=== PATIENT | female | born 1955 | race Asian ===

== ENCOUNTER 2019-01-08 09:02 | Outpatient (REF) | payer BC, SELFPAY ==
--- NOTE | 2019-01-08 08:30 | PAPFT_PTH ---
PATIENT: Jeannie Mcgowan LOC: [facility] U#:[id number] AGE/SX: 63/F ROOM: RE01/08/[address]: CIARA Diamond : 1955 BED: DIS: 01/08/2019 SPEC #: [id number] RECD: 01/08/19 13:03 STATUS: SIGRID MARSH #: [id number] RERE: 01/08/19 08:[address]: Elaine Rodriguez DEPT: [facility] Cytology RECD BY: Beronica Roper Tissues: 1 - CX/ENDOCX FOR PAP SMEARS Procedures: PAP THIN PREP/[facility] Screening HPV DNA PROBE Comments: [id number]
== END 2019-01-08 09:22 ==
LOC: LBN 09:02
PROVIDERS: Visit Provider Nurse Practitioner Family
DX: Z12.4 Encounter for screening for malignant neoplasm of cervix (principal); Z11.51 Encounter for screening for human papillomavirus (HPV)
CPT/HCPCS: 88142; 87624

== ENCOUNTER 2020-12-23 02:32 | Outpatient (CLI) | payer MEDICARE, OTHER, SELFPAY ==
[2020-12-23 10:12] LABS: Anion Gap 7.9 mmol/L (3-11); BUN 12 mg/dL (7-18); CO2 29.1 mmol/L (21.0-32.0); CREATININE 0.6 mg/dL (0.55-1.02); Calcium 9.4 mg/dL (8.5-10.1); Calculated LDL 129 mg/dL (<100); Chloride 104 mmol/L (98-107); Cholesterol 211 mg/dL (<200); Glucose 110 mg/dL (74-106); HDL Cholesterol 71 mg/dL (40-60); Potassium 3.9 mmol/L (3.5-5.1); Sodium 141 mmol/L (136-145); Triglyceride 57 mg/dL (<150)
== END 2020-12-23 02:33 | disposition home or self-care (01) ==
LOC: LBO 02:32
PROVIDERS: PCP Internal Medicine; Visit Provider Internal Medicine
DX: Z13.1 Encounter for screening for diabetes mellitus (principal); Z13.6 Encounter for screening for cardiovascular disorders; Z00.00 Encounter for general adult medical examination without abnormal findings
CPT/HCPCS: 36415; 80048; 80061

== ENCOUNTER 2021-01-10 02:39 | Outpatient (CLI) | payer MEDICARE, SELFPAY ==
--- NOTE | 2021-01-10 07:00 | DI.MAMMO_ITS ---
Exam(s) MAMMO SCREENING EXAM: MAMMO SCREENING CLINICAL HISTORY: screening,Z12.39 TECHNIQUE: Mammograms were interpreted according to the usual protocol including computer analysis w [employer] CAD system, tomosynthesis and C-view imaging. COMPARISON: 2012 and 2015 FINDINGS: The breasts are composed of heterogeneously dense fibroglandular densities, Breast Density category C . No suspicious masses or suspicious microcalcifications are seen. Multiple scattered bilateral benign -appearing calcifications. No skin thickening or abnormal axillary lymph nodes are seen. There has been no significant change from prior exams. IMPRESSION: BI-RADS Cat 2 - Benign Findings Yearly screening mammography is recommended. Breast Density Category C, heterogeneously Dense. The mammogram demonstrates the patient's breast tissue is dense. Dense breast tissue is very common a nd is not abnormal but dense breast tissue can make it harder to find cancer on a mammogram. Also, de nse breast tissue may increase breast cancer risk. This information about the result of the mammogram report was provided to the patient to raise their awareness. Use this report when you speak with the patient about their risks for breast cancer, which includes their family history. At that time, you may recommend additional screening tests (Ultrasound or MRI) as they might be useful based on their r isk. A negative radiographic report should not delay biopsy if a dominant or clinically suspicious mass is present. Up to ten percent of cancers are not identified on mammography. A negative report may reinforce clinical impression. Adenosis and dense breasts may obscure an underlying neoplasm. False positive reports average 6 to 10%.
== END 2021-01-10 02:59 ==
PROVIDERS: PCP Internal Medicine; Visit Provider Internal Medicine
DX: Z12.31 Encounter for screening mammogram for malignant neoplasm of breast (principal); R92.8 Other abnormal and inconclusive findings on diagnostic imaging of breast
CPT/HCPCS: 77063; 77067

== ENCOUNTER 2021-04-13 02:09 | Outpatient (CLI) | payer MEDICARE, SELFPAY ==
--- NOTE | 2021-04-13 14:45 | DI.DEXA_ITS ---
Exam(s) XR DEXA BONE DENSITY W/WO TOYA EXAM: XR DEXA BONE DENSITY W/WO TOYA CLINICAL HISTORY: screening FOR OSTEOPOROSIS IN POSTMENOPAUSAL WOMAN,Z78.0 TECHNIQUE: COMPARISON: No exams were available for comparison FINDINGS: DEXA scan was performed according to the usual protocol. Please see the accompanying data sheets. F indings for left hip scanning are T-score -2.4 with left femoral neck T-score -3.1. Lumbar spine scanning shows T-score -2.4. Left forearm scanning shows T-score -3.4. IMPRESSION: Findings consistent with osteoporosis according to the WHO criteria. The lateral vertebral scanogram shows no evidence of a vertebral compression fracture. RADIATION DOSE DELIVERED: Total DLP
== END 2021-04-13 02:29 ==
PROVIDERS: PCP Internal Medicine; Visit Provider Internal Medicine
DX: Z78.0 Asymptomatic menopausal state (principal); M81.0 Age-related osteoporosis without current pathological fracture
CPT/HCPCS: 77080

== ENCOUNTER 2021-12-28 02:36 | Outpatient (CLI) | payer MEDICARE, OTHER, SELFPAY ==
[2021-12-28 14:27] LABS: HCT 36.9 % (36.0-46.0); HGB 12.4 g/dL (11.2-15.7); MCH 32.9 pg (27.0-33.0); MCHC 33.6 % (32.0-36.0); MCV 98 fL (80-95); RBC 3.77 10^6/uL (3.93-5.22); RDW 13.5 % (11.7-14.6); RDW-SD 48.6 fL; WBC 4.98 10^3/uL (4.4-10.8)
[2021-12-28 15:10] LABS: Anion Gap 6.9 mmol/L (3-11); BUN 20 mg/dL (7-18); CO2 28.1 mmol/L (21.0-32.0); CREATININE 0.6 mg/dL (0.55-1.02); Calcium 9.2 mg/dL (8.5-10.1); Chloride 104 mmol/L (98-107); Glucose 105 mg/dL (74-106); Potassium 3.7 mmol/L (3.5-5.1); Sodium 139 mmol/L (136-145); TSH 0.82 uIU/mL (0.36-3.74)
[2021-12-28 15:39] LABS: Iron 50 ug/dL (50-170); Total Iron Binding Capacity 351 ug/dL (250-450); Transferrin Sat 14 % (15-50)
[2021-12-28 15:49] LABS: Calculated LDL 124 mg/dL (<100); Cholesterol 210 mg/dL (<200); HDL Cholesterol 74 mg/dL (40-60); Triglyceride 61 mg/dL (<150); Vitamin B12 336 pg/mL (193-986)
== END 2021-12-28 02:37 | disposition home or self-care (01) ==
LOC: LBO 02:36
PROVIDERS: PCP Internal Medicine; Visit Provider Internal Medicine
DX: R61 Generalized hyperhidrosis (principal); E78.5 Hyperlipidemia, unspecified; R73.01 Impaired fasting glucose; E78.00 Pure hypercholesterolemia, unspecified; D64.9 Anemia, unspecified
CPT/HCPCS: 36415; 80048; 80061; 85027; 82607; 83540; 83550; 84443

== ENCOUNTER 2023-02-18 04:28 | Outpatient (CLI) | payer MEDICARE, OTHER, SELFPAY ==
[2023-02-18 08:21] LABS: Hemoglobin A1C 5.8 % (<5.7)
[2023-02-18 08:27] LABS: ALT 29 U/L (14-59); AST 21 U/L (15-37); Albumin 3.9 g/dL (3.4-5.0); Alkaline Phosphatase 54 U/L (46-116); Anion Gap 8.3 mmol/L (3-11); BUN 13 mg/dL (7-18); Bilirubin, Total 0.5 mg/dL (0.2-1.0); CO2 28.7 mmol/L (21.0-32.0); CREATININE 0.7 mg/dL (0.55-1.02); Calcium 9.3 mg/dL (8.5-10.1); Calculated LDL 137 mg/dL (<100); Chloride 101 mmol/L (98-107); Cholesterol 216 mg/dL (<200); Estimated GFR 94.15 (mL/min/1.73m2); Glucose 100 mg/dL (74-106); HDL Cholesterol 59 mg/dL (40-60); Sodium 138 mmol/L (136-145); Total Protein 7.2 g/dL (6.4-8.2); Triglyceride 100 mg/dL (<150)
[2023-02-18 09:09] LABS: Vitamin D 25 Total 32.3 ng/mL (30-100)
== END 2023-02-18 04:29 | disposition home or self-care (01) ==
LOC: LBO 04:28
PROVIDERS: PCP Nurse Practitioner; Referring Provider Nurse Practitioner; Visit Provider Nurse Practitioner
DX: E78.5 Hyperlipidemia, unspecified (principal); R73.01 Impaired fasting glucose; M81.0 Age-related osteoporosis without current pathological fracture
CPT/HCPCS: 36415; 80053; 80061; 82306; 83036

== ENCOUNTER 2024-03-20 01:04 | Outpatient (CLI) | payer MEDICARE, SELFPAY ==
[2024-03-20 08:46] LABS: Calculated LDL 154 mg/dL (<100); Cholesterol 228 mg/dL (<200); HDL Cholesterol 61 mg/dL (40-60); Triglyceride 67 mg/dL (<150)
[2024-03-20 10:35] LABS: Hemoglobin A1C 5.7 % (<5.7)
== END 2024-03-20 01:05 | disposition home or self-care (01) ==
LOC: LBO 01:05
PROVIDERS: PCP Nurse Practitioner; Visit Provider Nurse Practitioner
DX: R73.03 Prediabetes (principal); M81.0 Age-related osteoporosis without current pathological fracture; E78.5 Hyperlipidemia, unspecified
CPT/HCPCS: 36415; 80061; 83036

== ENCOUNTER 2024-09-16 03:37 | Outpatient (CLI) | payer MEDICARE, SELFPAY ==
[2024-09-16 07:37] LABS: Abs Immature Grans 0.02 10^3/uL (0.0-0.06); Absolute Basophil Count 0.03 10^3/uL (0.0-0.2); Absolute Eosinophil Count 0.09 10^3/uL (0.0-0.7); Absolute Lymphocyte Count 1.86 10^3/uL (1.2-3.4); Absolute Neutrophil Count 1.93 10^3/uL (1.2-6.7); Basophils % 0.7 %; Eosinophils % 2.1 %; HCT 37.9 % (36.0-46.0); HGB 12.6 g/dL (11.2-15.7); Immature Grans % 0.5 %; MCH 31.7 pg (27.0-33.0); MCHC 33.2 % (32.0-36.0); MCV 95 fL (80-95); MPV 10.3 fL (8.0-11.0); Monocytes % 7.1 %; Neutrophils % 45.6 %; Platelet Count 183 10^3/uL (130-400); RBC 3.98 10^6/uL (3.93-5.22); RDW 13.1 % (11.7-14.6); RDW-SD 46.1 fL; WBC 4.23 10^3/uL (4.4-10.8)
[2024-09-16 08:05] LABS: Hemoglobin A1C 5.9 % (<5.7)
[2024-09-16 08:09] LABS: ALT 26 U/L (14-59); AST 24 U/L (15-37); Albumin 3.9 g/dL (3.4-5.0); Alkaline Phosphatase 70 U/L (46-116); Anion Gap 7.6 mmol/L (3-11); BUN 10 mg/dL (7-18); Bilirubin, Total 0.5 mg/dL (0.2-1.0); CO2 29.4 mmol/L (21.0-32.0); CREATININE 0.6 mg/dL (0.55-1.02); Calcium 9.2 mg/dL (8.5-10.1); Calculated LDL 155 mg/dL (<100); Chloride 105 mmol/L (98-107); Cholesterol 238 mg/dL (<200); Glucose 102 mg/dL (74-106); HDL Cholesterol 65 mg/dL (>or=50); Potassium 4.1 mmol/L (3.5-5.1); Sodium 142 mmol/L (136-145); Total Protein 7.4 g/dL (6.4-8.2); Triglyceride 92 mg/dL (<150)
== END 2024-09-16 03:38 | disposition home or self-care (01) ==
LOC: LBO 03:37
PROVIDERS: PCP Nurse Practitioner; Visit Provider Nurse Practitioner
DX: R73.03 Prediabetes (principal); E78.5 Hyperlipidemia, unspecified; Z86.2 Personal history of diseases of the blood and blood-forming organs and certain disorders involving the immune mechanism
CPT/HCPCS: 36415; 80053; 80061; 83036; 85025